=== PATIENT | male | born 1995 | race Caucasian/White ===

== ENCOUNTER 2019-01-02 03:40 | Emergency (ER) | payer SELFPAY ==
[~2019-01-02] VITALS: Ht 162.6 cm; Wt 66.7 kg
[2019-01-02 04:00] LABS: Basophils # (auto) 0.1 uL; Basophils % (auto) 0.5 % (0.0-2.0); Eosinophils # (auto) 0.2 uL; Eosinophils % (auto) 2.1 % (0.0-7.0); Hemoglobin 16.5 g/dL (13.5-17.5); Lymphocytes # (auto) 4.2 uL; Lymphocytes % (auto) 39.4 % (10.0-50.0); Mean Corpuscular Hgb Conc. 35.8 g/dL (32.0-36.0); Mean Corpuscular Volume 89.4 fL (80.0-100.0); Monocytes # (auto) 0.7 uL; Monocytes % (auto) 6.5 % (0.0-12.0); Neutrophils # (auto) 5.5 uL; Neutrophils % (auto) 51.5 % (37.0-80.0); Nucleated Red Blood Cells % 0.1 %; Platelet Count (auto) 236 10^3/uL (140-450); Red Blood Cells 5.14 10^6/uL (4.5-5.90); Red Cell Distribution Width 12.7 % (11.8-14.3); White Blood Cell 10.8 10^3/uL (4.4-10.8)
[2019-01-02 04:14] LABS: INR < 0.93 (0.9-1.15); Partial Thromboplastin Time 27.6 sec (23.64-32.05)
[2019-01-02 04:19] LABS: Albumin 4.2 g/dL (3.4-5.0); Calcium 9.4 mg/dL (8.5-10.1); Potassium 3.6 mmol/L (3.5-5.1)
[2019-01-02 04:22] LABS: BUN/Creatinine Ratio 16.5; Bilirubin, Total 0.2 mg/dL (0.2-1.0)
[2019-01-02 11:46] LABS: Urine Bacteria NONE SEEN /hpf (None Seen); Urine Blood Negative /uL (Negative); Urine Specific Gravity 1.028 (1.001-1.035); Urine WBC <1 /hpf (0 - 3)
[2019-01-02 12:44] VITALS: BP 129/80
== END 2019-01-02 13:04 | disposition home or self-care (01) ==
LOC: ER 03:42
DX: R10.9 Unspecified abdominal pain (principal); K40.90 Unilateral inguinal hernia, without obstruction or gangrene, not specified as recurrent; K59.01 Slow transit constipation; F17.210 Nicotine dependence, cigarettes, uncomplicated; Z88.8 Allergy status to other drugs, medicaments and biological substances
CPT/HCPCS: 36415; 74176; 80053; 81001; 81002; 82150; 83690; 85025; 85610; 85730

== ENCOUNTER 2019-03-20 07:56 | Day surgery (SDC) | payer OTHER ==
[2019-03-15 10:55] LABS: Urine WBC None Seen /hpf (0 - 3)
[2019-03-15 11:26] LABS: Basophils # (auto) 0 uL; Basophils % (auto) 0.1 % (0.0-2.0); Eosinophils # (auto) 0.1 uL; Eosinophils % (auto) 1.3 % (0.0-7.0); Hematocrit 45.6 % (41.0-53.0); Hemoglobin 15.8 g/dL (13.5-17.5); Lymphocytes # (auto) 3.2 uL; Lymphocytes % (auto) 35.5 % (10.0-50.0); Mean Corpuscular Hemoglobin 30.8 pg (28.0-32.0); Mean Corpuscular Hgb Conc. 34.7 g/dL (32.0-36.0); Mean Corpuscular Volume 88.7 fL (80.0-100.0); Monocytes # (auto) 0.9 uL; Monocytes % (auto) 10.5 % (0.0-12.0); Neutrophils # (auto) 4.7 uL; Neutrophils % (auto) 52.6 % (37.0-80.0); Nucleated Red Blood Cells % 0.1 %; Platelet Count (auto) 243 10^3/uL (140-450); Red Blood Cells 5.14 10^6/uL (4.5-5.90); Red Cell Distribution Width 12.7 % (11.8-14.3); White Blood Cell 8.9 10^3/uL (4.4-10.8)
[2019-03-15 11:27] LABS: Urine Bacteria NONE SEEN /hpf (None Seen); Urine Blood Negative /uL (Negative); Urine Mucus FEW (None Seen); Urine Specific Gravity 1.026 (1.001-1.035)
[2019-03-15 11:35] LABS: INR 0.97 (0.9-1.15); Partial Thromboplastin Time 30.8 sec (23.64-32.05)
[2019-03-15 11:44] LABS: Potassium 3.6 mmol/L (3.5-5.1)
[2019-03-15 11:54] LABS: Albumin 4.3 g/dL (3.4-5.0); BUN/Creatinine Ratio 16.7; Bilirubin, Total 0.3 mg/dL (0.2-1.0); Calcium 9.6 mg/dL (8.5-10.1); Total Protein 8.3 g/dL (6.4-8.2)
[~2019-03-20] VITALS: Ht 162.6 cm; Wt 66.7 kg
[2019-03-20] MEDS ORDERED: ceFAZolin 1GM/50ML 50 ML IV ONE (08:09)
[2019-03-20] MEDS ORDERED: BUPIVACAINE W/ EPINEPH 0.25% INJ 50ML MDV ONE (09:00)
[2019-03-20] MEDS ORDERED: MIDAZOLAM HCL 1MG/1ML-2 ML VIAL ONE (09:14)
[2019-03-20] MEDS ORDERED: METOCLOPRAMIDE HCL 5MG/ml INJ 2ml VIAL ONE (09:14)
[2019-03-20] MEDS ORDERED: PROPOFOL 10 MG/ML 20 ML IV ONE ×2 (09:16→09:18)
[2019-03-20] MEDS ORDERED: LIDOCAINE HCL 2% TOP JELLY 5ML TOP ONE (09:17)
[2019-03-20] MEDS ORDERED: fentaNYL CITRATE 100 MCG/2 ML VL ONE (09:23)
[2019-03-20] MEDS ORDERED: NALOXONE HCL 0.4 MG/ML VIAL IV PRN (09:30)
[2019-03-20] MEDS ORDERED: ONDANSETRON HCL 4 MG/2 ML VIAL IV PRN (09:30)
[2019-03-20] MEDS ORDERED: HYDROmorphone HCL 2 MG/ML VL IV PRN ×2 (09:30)
[2019-03-20] MEDS ORDERED: KETOROLAC TROMETH 30 MG/ML 1ML VIAL ONE (09:46)
[2019-03-20 11:17] VITALS: BP 118/56
== END 2019-03-20 11:22 | disposition home or self-care (01) ==
LOC: SUR 07:56
PROVIDERS: ATTEND Surgery
DX: K40.90 Unilateral inguinal hernia, without obstruction or gangrene, not specified as recurrent (principal); N43.2 Other hydrocele; G40.909 Epilepsy, unspecified, not intractable, without status epilepticus; F17.210 Nicotine dependence, cigarettes, uncomplicated; Z88.8 Allergy status to other drugs, medicaments and biological substances
CPT/HCPCS: 36415; 49505; 55500; 80053; 81001; 85025; 85610; 85730; J0690; J1170; J1885; J2250; J2405; J2704; J2765; J3010; Q4100